=== PATIENT | female | born 1960 | race Asian ===

== ENCOUNTER 2016-06-04 09:57 | Outpatient (CLI) | payer BC | END 2016-06-04 19:05 | disposition home or self-care (01) | LOC: MAMMO 09:57 | DX: R92.2 Inconclusive mammogram (principal) | CPT/HCPCS: G0204-TC ==

== ENCOUNTER 2018-06-13 09:04 | Outpatient (CLI) | payer OTHER ==
[2018-06-13 09:29] LABS: PLATELET COUNT 197 K/uL (152-353)
[2018-06-13 09:54] LABS: POTASSIUM 4.2 mmol/L (3.6-5.2)
== END 2018-06-13 19:17 | disposition home or self-care (01) ==
LOC: LABW 09:04
PROVIDERS: Physician Assistant
DX: N63.10 Unspecified lump in the right breast, unspecified quadrant (principal); G44.219 Episodic tension-type headache, not intractable; R12 Heartburn; E78.00 Pure hypercholesterolemia, unspecified
CPT/HCPCS: 36415; 80053; 80061; 82306; 83036; 84439; 84443; 85027

== ENCOUNTER 2018-06-17 08:07 | Outpatient (CLI) | payer OTHER | END 2018-06-17 19:47 | disposition home or self-care (01) | LOC: MAMMO 08:07 | DX: N63.10 Unspecified lump in the right breast, unspecified quadrant (principal) ==

== ENCOUNTER 2018-06-21 08:33 | Outpatient (CLI) | payer OTHER | END 2018-06-21 20:20 | disposition home or self-care (01) | LOC: US 08:33 | DX: N63.10 Unspecified lump in the right breast, unspecified quadrant (principal) ==

== ENCOUNTER 2018-09-09 11:01 | Outpatient (CLI) | payer OTHER | END 2018-09-09 23:35 | disposition home or self-care (01) | LOC: RAD 11:01 | DX: M54.9 Dorsalgia, unspecified (principal) ==

== ENCOUNTER 2020-03-29 13:25 | Outpatient (CLI) | payer OTHER | END 2020-03-29 19:59 | disposition home or self-care (01) | LOC: INF 13:25 | PROVIDERS: ATTEND Internal Medicine Endocrinology, Diabetes & Metabolism | DX: Z23 Encounter for immunization (principal) | CPT/HCPCS: 96372 ==

== ENCOUNTER 2020-05-08 09:59 | Outpatient (CLI) | payer OTHER | END 2020-05-08 21:48 | disposition home or self-care (01) | LOC: INF 09:59 | PROVIDERS: ATTEND Internal Medicine Endocrinology, Diabetes & Metabolism | DX: Z23 Encounter for immunization (principal) | CPT/HCPCS: 96372 ==

== ENCOUNTER 2020-07-11 11:55 | Outpatient (CLI) | payer OTHER | END 2020-07-11 20:22 | disposition home or self-care (01) | LOC: LABW 11:55 | PROVIDERS: ATTEND Podiatrist | DX: M10.072 Idiopathic gout, left ankle and foot (principal) | CPT/HCPCS: 36415; 84550; 86140 ==

== ENCOUNTER 2021-02-14 09:52 | Outpatient (CLI) | payer OTHER | END 2021-02-14 18:43 | disposition home or self-care (01) | LOC: RAD 09:52 | PROVIDERS: ATTEND Physician Assistant | DX: M96.1 Postlaminectomy syndrome, not elsewhere classified (principal) ==

== ENCOUNTER 2022-05-22 14:59 | Outpatient (CLI) | payer OTHER | END 2022-05-22 17:00 | disposition home or self-care (01) | LOC: MAMMO 14:59 | PROVIDERS: ATTEND Family Medicine | DX: R92.8 Other abnormal and inconclusive findings on diagnostic imaging of breast (principal) | CPT/HCPCS: G0279 ==